=== PATIENT | female | born 1945 | race Caucasian/White ===

== ENCOUNTER → 2024-09-21 | Outpatient (CLI) | payer MEDICARE ==
--- NOTE | 2024-09-21 14:51 | HMCIMG ---
DEXA BONE DENSITY SURVEY HISTORY: No additional history given. COMPARISON: None FINDINGS: Bone densitometry study was performed. Bone mineral density of the lumbar spine is 1.023 gram per centimeter square which corresponds to a T score of -0.2 and a Z score of 2.5. Bone mineral density of the left hip is 0.776 grams per centimeter square which corresponds to a T score of -1.4 and a Z score of 0.7. IMPRESSION: 1. Normal bone mineral density of the lumbar spine and osteopenia of left hip.
== END | disposition home or self-care (01) ==
LOC: RAH 14:00
PROVIDERS: ATTEND Internal Medicine
DX: M85.88 Other specified disorders of bone density and structure, other site (principal); N95.9 Unspecified menopausal and perimenopausal disorder
CPT/HCPCS: 77080

== ENCOUNTER → 2024-12-01 | Outpatient (CLI) | payer MEDICARE ==
--- NOTE | 2024-12-01 11:12 | HMCIMG ---
KNEE 3VWS LT HISTORY: Left knee pain COMPARISON: None TECHNIQUE: 3 images of left knee were obtained. FINDINGS: There is no acute displaced fracture or dislocation. Degenerative changes are seen. IMPRESSION: 1. Findings as described above.
== END | disposition home or self-care (01) ==
LOC: RAH 09:51
PROVIDERS: ATTEND Internal Medicine
DX: M17.12 Unilateral primary osteoarthritis, left knee (principal); M25.562 Pain in left knee
CPT/HCPCS: 73562